=== PATIENT | female | born 1965 | race Caucasian/White ===

== ENCOUNTER 2016-06-19 08:30 | Inpatient (IN) | payer OTHER ==
[~2016-06-19] VITALS: Ht 160 cm; Wt 79.0 kg
[2016-06-19 14:14] LABS: BILIRUBIN NEGATIVE (NEGATIVE); BLOOD TRACE-INTACT Ery/uL (NEGATIVE); CLARITY CLEAR (CLEAR); COLOR YELLOW (YELLOW); GLUCOSE (U) NORMAL (NORMAL); KETONE (U) NEGATIVE (NEGATIVE); LEUKOCYTES NEGATIVE Leu/uL (NEGATIVE); NITRITE NEGATIVE (NEGATIVE); PROTEIN NEGATIVE (NEGATIVE); SPECIFIC GRAVITY 1.015 (1.001-1.030); UROBILINOGEN 0.2 mg/dL (0.2-1.0); pH 5.5 (5.0-9.0)
[2016-06-20 04:23] LABS: HCT 29.6 % (37.0-47.0); HGB 9.4 g/dl (12.5-16.0); MCH 28.2 pg (25.0-31.0); MCHC 31.8 g/dL (32.0-36.0); MCV 88.9 fL (78.0-100.0); MPV 8.9 fL (6.0-9.5); RBC 3.33 M/uL (4.20-5.40); RDW 12.8 % (11.5-14.0); WBC 10.2 K/uL (4.0-10.5)
[2016-06-20 04:51] LABS: CREATININE 0.6 mg/dL (0.5-1.0); POTASSIUM 4.5 mmol/L (3.5-5.1)
[2016-06-21 06:29] LABS: HCT 29.5 % (37.0-47.0); HGB 9.2 g/dl (12.5-16.0); MCHC 31.2 g/dL (32.0-36.0); MCV 89.7 fL (78.0-100.0); MPV 9.2 fL (6.0-9.5); RBC 3.29 M/uL (4.20-5.40); RDW 13.1 % (11.5-14.0); WBC 10.1 K/uL (4.0-10.5)
[2016-06-21 06:53] LABS: CREATININE 0.5 mg/dL (0.5-1.0); POTASSIUM 3.8 mmol/L (3.5-5.1)
[2016-06-22 05:08] LABS: HCT 28.7 % (37.0-47.0); MCH 28.2 pg (25.0-31.0); MCHC 31.4 g/dL (32.0-36.0); MPV 9.4 fL (6.0-9.5); RBC 3.19 M/uL (4.20-5.40); RDW 13.1 % (11.5-14.0); WBC 9.3 K/uL (4.0-10.5)
[2016-06-22 05:26] LABS: CREATININE 0.5 mg/dL (0.5-1.0); POTASSIUM 4.1 mmol/L (3.5-5.1)
[2016-06-22] MEDS ORDERED: XARELTO10 MG PO (12:04)
[2016-06-22] MEDS ORDERED: LISINOPRIL-HCT1 EACH PO (12:05)
[2016-06-22] MEDS ORDERED: PROTONIX 40MG T40 MG PO (12:05)
[2016-06-22] MEDS ORDERED: CERTAGEN1 EACH PO (12:05)
[2016-06-22] MEDS ORDERED: ROPINIROLE HCL2 MG PO (12:06)
[2016-06-22] MEDS ORDERED: ZOCOR40 MG PO (12:06)
== END 2016-06-22 13:56 | disposition home health service (06) | DRG 470 ==
LOC: FMS 08:30
PROVIDERS: Internal Medicine Nephrology; ADMIT Legal Medicine
PROC: 3E0U33Z Introduction of Anti-inflammatory into Joints, Percutaneous Approach (ICD-10-PCS; 2016-06-19)
PROC: 0SRD0J9 Replacement of Left Knee Joint with Synthetic Substitute, Cemented, Open Approach (ICD-10-PCS; principal; 2016-06-19 12:00)
PROC: 8E0YXBZ Computer Assisted Procedure of Lower Extremity (ICD-10-PCS; 2016-06-19 12:00)
PROC: 3E0234Z Introduction of Serum, Toxoid and Vaccine into Muscle, Percutaneous Approach (ICD-10-PCS; 2016-06-21)
DX: M17.0 Bilateral primary osteoarthritis of knee (principal); D62 Acute posthemorrhagic anemia; I10 Essential (primary) hypertension; M21.162 Varus deformity, not elsewhere classified, left knee; K21.9 Gastro-esophageal reflux disease without esophagitis; Z87.891 Personal history of nicotine dependence; E78.00 Pure hypercholesterolemia, unspecified; I95.81 Postprocedural hypotension; Z83.3 Family history of diabetes mellitus; Z82.49 Family history of ischemic heart disease and other diseases of the circulatory system; Z83.6 Family history of other diseases of the respiratory system; Z82.3 Family history of stroke
CPT/HCPCS: 36415; 73560; 80048; 81003; 84703; 86850; 86900; 86901; 88305; 88311; 90686; 94010; 94667; 94668; 94762; 97110; 97116; 97162; 97165; 97530; 97530-GP; 97535; C1776; G0009; J0131; J0697; J1040; J1100; J1885; J2270; J2274; J2405; J2704; J2795; J3010

== ENCOUNTER → 2020-09-17 | Day surgery (SDC) | payer OTHER ==
[~2020-09-17] VITALS: Ht 160 cm; Wt 94.3 kg
[~2020-09-17] MED LIST: CERTAGEN1 EACH PO; COLESTID 1GM TAB1 GM PO; LISINOPRIL-HCT1 EACH PO; PROTONIX 40MG T40 MG PO; ROPINIROLE HCL2 MG PO; XARELTO10 MG PO; ZOCOR40 MG PO
[2020-09-17 09:46] LABS: HCT 36.1 % (37.0-47.0); HGB 11.8 g/dl (12.5-16.0); MCH 26.9 pg (25.0-31.0); MCHC 32.7 g/dL (32.0-36.0); MCV 82.4 fL (78.0-100.0); MPV 9.2 fL (6.0-9.5); RBC 4.38 M/uL (4.20-5.40); RDW 14.4 % (11.5-14.0)
[2020-09-17 09:51] LABS: ALBUMIN 3.7 g/dL (3.4-5.0); BILIRUBIN - TOTAL 0.6 mg/dL (0.2-1.0); CREATININE 0.58 mg/dL (0.51-0.95); GLOBULIN (CALCULATION) 4.1 g/dL; POTASSIUM 3.7 mmol/L (3.5-5.1); TOTAL PROTEIN 7.8 g/dL (6.4-8.2)
== END | disposition home or self-care (01) ==
LOC: FAS 08:44
PROVIDERS: Surgery
DX: K57.30 Diverticulosis of large intestine without perforation or abscess without bleeding (principal); K63.89 Other specified diseases of intestine; M19.90 Unspecified osteoarthritis, unspecified site; K21.9 Gastro-esophageal reflux disease without esophagitis; I10 Essential (primary) hypertension; E78.00 Pure hypercholesterolemia, unspecified; M81.0 Age-related osteoporosis without current pathological fracture; Z87.891 Personal history of nicotine dependence; Z90.49 Acquired absence of other specified parts of digestive tract; Z79.899 Other long term (current) drug therapy
CPT/HCPCS: 36415; 80053; J2250; J2704; J7120

== ENCOUNTER 2021-03-14 10:04 | Day surgery (SDC) | payer OTHER ==
[~2021-03-14] VITALS: Ht 160 cm; Wt 89.0 kg
[~2021-03-14 10:04] MED LIST changes: +ALENDRONATE SOD70 MG PO; +CELECOXIB100 MG PO; +NORCO 5/3251 EACH PO
[2021-03-15 05:53] LABS: BASOPHIL 0.1 % (0-2); EOSINOPHIL 0 % (0-5); HCT 32.6 % (37.0-47.0); HGB 10.3 g/dl (12.5-16.0); LYMPHOCYTE 11.9 % (15-48); MCH 26.4 pg (25.0-31.0); MCHC 31.6 g/dL (32.0-36.0); MCV 83.6 fL (78.0-100.0); MPV 8.7 fL (6.0-9.5); NEUTROPHIL 82.9 % (41-80); NRBC 0; PLT 193 K/uL (150-400); RDW 13.4 % (11.5-14.0); WBC 10.4 K/uL (4.0-10.5)
[2021-03-15 06:37] LABS: BUN/CREAT RATIO (CALC) 24.1 RATIO; CREATININE 0.83 mg/dL (0.51-0.95); POTASSIUM 4.8 mmol/L (3.5-5.1)
[2021-03-15] MEDS ORDERED: OXYCODONE-ACET1 EAC1 PO (10:26)
[2021-03-15] MEDS ORDERED: FEOSOL325 MG PO (10:26)
[2021-03-15] MEDS ORDERED: ASPIRIN325 MG PO (10:26)
== END 2021-03-15 14:14 | disposition home or self-care (01) ==
LOC: FAS 10:04 → FMS 14:46 → FAS 03-15 14:14
PROVIDERS: Legal Medicine
DX: T84.84XA Pain due to internal orthopedic prosthetic devices, implants and grafts, initial encounter (principal); T84.89XA Other specified complication of internal orthopedic prosthetic devices, implants and grafts, initial encounter; M13.162 Monoarthritis, not elsewhere classified, left knee; M65.862 Other synovitis and tenosynovitis, left lower leg; M21.10 Varus deformity, not elsewhere classified, unspecified site; K21.9 Gastro-esophageal reflux disease without esophagitis; I10 Essential (primary) hypertension; E78.5 Hyperlipidemia, unspecified; Z96.652 Presence of left artificial knee joint; Y83.4 Other reconstructive surgery as the cause of abnormal reaction of the patient, or of later complication, without mention of misadventure at the time of the procedure; Y92.9 Unspecified place or not applicable; Z20.822 Contact with and (suspected) exposure to COVID-19
CPT/HCPCS: 36415; 80048; 85025; 86850; 86900; 86901; 87070; 87075; 87088; 87205; 94010; 94762; 97162; 97166; 97530-GP; 97535; J0171; J0697; J1100; J1885; J2250; J2270; J2405; J2704; J2795; J3010; J7040; J7120